=== PATIENT | female | born 1965 | race Caucasian/White ===

== ENCOUNTER 2019-08-12 12:38 | Outpatient (CLI) | payer OTHER, SELFPAY ==
--- NOTE | ~2019-08-12 | DEXA_ITS ---
BMD(1) Young-Adult(2) Age-Matched(3) Region (g/cm2) T-score Z-score WHO Classification L1 0.920 -1.8 -1.1 Osteopenia L2 1.029 -1.5 -0.8 Osteopenia L3 1.141 -0.6 0.1 Normal L4 1.031 -1.5 -0.8 Osteopenia L1-L4 1.033 -1.3 -0.6 Osteopenia Trend: L1-L4 Change vs Change vs Measured Age BMD(1) Baseline Previous Date (years) (g/cm2) (%) (%) 08/12/2019 54.3 1.033 baseline - 1 - Statistically 68% of repeat scans fall within 1SD (+- 0.010 g/cm2 for AP Spine L1-L4) 2 - [place] (Combined NHANES (ages 20-30) / Spotzot (ages 20-40)) AP Spine Reference Population (v112) 3 - Matched for Age, Weight (females 25-100 kg), Ethnic 11 - World Health Organization - Definition of Osteoporosis and Osteopenia for Women: Normal = T-score at or above -1.0 SD; Osteopenia = T-score between -1.0 and -2.5 SD; Osteoporosis = T-score at or below -2.5 SD; (WHO definitions only apply when a young healthy Women reference database is used to determine T-scores.) Printed: 08/12/2019 1:35:25 PM (13.60)76:3.00:50.00:12.0 0.00:10.44 0.60x1.05 23.8:%Fat=33.9% 0.00:0.00 0.00:0.00 Verify bone is centered and there is sufficient tissue next to bone. Filename: [id number] Scan Mode: Standard;Framehawkcan 37.0 Primordial [id number] BMD(1) Young-Adult(2,7) Age-Matched(3) Region (g/cm2) T-score Z-score WHO Classification Neck Left 0.719 -2.3 -1.3 Osteopenia Right 0.709 -2.4 -1.4 Osteopenia Mean 0.714 -2.3 -1.4 Osteopenia Difference 0.010 0.1 0.1 - Total Left 0.768 -1.9 -1.3 Osteopenia Right 0.828 -1.4 -0.8 Osteopenia Mean 0.798 -1.7 -1.0 Osteopenia Difference 0.060 0.5 0.5 - Hip Spruce Length Comparison (mm) (Right = 90.5 mm) (Mean = 99.8 mm) (Left = 93.0 mm) Trend: Total Mean Change vs Change vs Measured Age BMD(1) Baseline Previous Date (years) (g/cm2) (%) (%) 08/12/2019 54.3 0.798 baseline - 1 - Statistically 68% of repeat scans fall within 1SD (+- 0.010 g/cm2 for DualFemur Total) 2 - [place] (Combined NHANES (ages 20-30) / Spotzot (ages 20-40)) Femur Reference Population (v112) 3 - Matched for Age, Weight (females 25-100 kg), Ethnic 7 - DualFemur Total T-score difference is 0.5. Asymmetry is None. 11 - World Health Organization - Definition of Osteoporosis and Osteopenia for Women: Normal = T-score at or above -1.0 SD; Osteopenia = T-score between -1.0 and -2.5 SD; Osteoporosis = T-score at or below -2.5 SD; (WHO definitions only apply when a young healthy Women reference database is used to determine T-scores.) Printed: 08/12/2019 1:35:25 PM (13.60); Filename: [id number]; Right Femur; 19.4:%Fat=29.6%; Neck Angle (deg)= 67; Scan Mode: Standard 37.0 uGy; Left Femur; 19.1:%Fat=28.7%; Neck Angle (deg)= 71; Scan Mode: Standard 37.0 uGy [employer] [id number] Dear Preet Decker, Your patient Bouchra Gomez completed a BMD test on 08/12/2019 using the [employer] DXA System (analysis version: 13.60) manufactured by [employer]. The following summarizes the results of our evaluation. PATIENT BIOGRAPHICAL: Name: Bouchra Gomez Date: 1965 Height: 59.0 in. Gen
--- NOTE | ~2019-08-12 | MM_ITS ---
EXAMINATION: MM screening coy BI w sonam HISTORY: Screening mammogram TECHNIQUE: Craniocaudal and mediolateral oblique 3-D tomosynthesis images were obtained and synthetic 2-D images were generated. CAD analysis was submitted and interpreted. COMPARISON: Comparison to multiple prior studies sequentially, with oldest reviewed study dated 11/2014. BREAST PARENCHYMAL COMPOSITION: There are scattered areas of fibroglandular density. FINDINGS: There is no evidence of suspicious mass, calcification, or architectural distortion to sugg est malignancy in either breast. There has been no suspicious interval change. IMPRESSION: 1. No mammographic evidence of malignancy. 2. Recommend routine screening mammography in one year. BI-RADS Category 1: Negative Reviewed, dictated and finalized at location A. OR DIRECTOR FINANCE
== END 2019-08-12 12:39 | disposition home or self-care (01) ==
LOC: CHSIMG 12:40
PROVIDERS: PCP Internal Medicine; Visit Provider Internal Medicine
DX: Z12.31 Encounter for screening mammogram for malignant neoplasm of breast (principal); Z13.820 Encounter for screening for osteoporosis; Z78.0 Asymptomatic menopausal state
CPT/HCPCS: 77063; 77067; 77080

== ENCOUNTER 2019-08-19 13:14 | Outpatient (CLI) | payer OTHER, SELFPAY ==
--- NOTE | 2019-08-19 14:45 | ECHO_ITS ---
Patient Info Name: Bouchra Gomez Age: 54 years : 1965 Gender: Female Ht: 59 in Wt: 140 lbs BSA: 1.65 m2 HR: 60 bpm BP: 163 / 82 mmHg Technical Quality: Good Exam Date: 08/19/2019 1:58 PM Exam Location: [facility] Patient Status: Outpatient Admit Date: 08/19/2019 Staff Ordering Physician: Preet Decker MD Station Attendant: Oscar Cho RDCS, RT Attending Provider: Preet Decker MD Exam Type: CA echo dop color flow w con Study Info Indications I10 - Essential (primary) hypertension Complete two-dimensional, color flow and Doppler transthoracic echocardiogram is performed with contrast to opacify the left ventrical and to improve the deliniation of the left ventrical endocarial boarders. Summary 1. Left ventricular chamber dimension is mildly enlarged. 2. Left ventricular systolic function is mildly reduced, estimated at 45-50%. 3. There is mildly increased left ventricular wall thickness. 4. The left ventricular diastolic function is grade I diastolic dysfunction. 5. E/e' 13 is mildly elevated. 6. Global longitudinal strain is abnormal at -11.2%. 7. There is mild aortic valve regurgitation. 8. There is trace tricuspid valve regurgitation. 9. There is trace pulmonic regurgitation. Left Ventricle E/e' 13 is mildly elevated. Global longitudinal strain is abnormal at -11.2%. Left ventricular chamber dimension is mildly enlarged. Left ventricular systolic function is mildly reduced, estimated at 45-50%. There is mildly increased left ventricular wall thickness. The left ventricular diastolic function is grade I diastolic dysfunction. Right Ventricle Right ventricular chamber dimension is normal. Right ventricular systolic function is normal. Left Atria Left atrial chamber dimension is normal. Right Atria Right atrial chamber dimension is normal. Aortic Valve The aortic valve is trileaflet. There is no aortic valve stenosis. There is mild aortic valve regurgitation. Pulmonic Valve There is trace pulmonic regurgitation. Mitral Valve There is no mitral valve stenosis. There is no mitral valve regurgitation. Tricuspid Valve There is trace tricuspid valve regurgitation. RVSP is not calculated due to an inadequate TR jet. Pericardium/Pleural There is no pericardial effusion. Inferior Vena Cava Normal inferior vena cava with >50% collapse upon inspiration consistent with normal right atrial pressure, 5 mmHg. Aorta The aortic root size at the sinus of Valsalva is normal. Left Ventricular Outflow Tract Name Value Normal LVOT 2D LVOT Diameter 2.19 cm LVOT Doppler LVOT Peak Velocity 87.49 cm/s LVOT Peak Gradient 3 mmHg LVOT Mean Gradient 2 mmHg LVOT VTI 18.53 cm LVOT VTI/AV VTI Ratio 0.82 LVOT Stroke Volume 69.83 ml Pulmonic Valve Name Value Normal
== END 2019-08-19 13:15 | disposition home or self-care (01) ==
LOC: CHSIMG 13:16
PROVIDERS: PCP Internal Medicine; Visit Provider Internal Medicine
DX: I10 Essential (primary) hypertension (principal); Z00.00 Encounter for general adult medical examination without abnormal findings
CPT/HCPCS: C8929

== ENCOUNTER 2019-10-04 23:38 | Emergency (ER) | payer OTHER, SELFPAY ==
[2019-10-04 23:49] VITALS: BP 176/92; PULSE 89; RESP 18; TEMP 36.6; O2SAT 97
--- NOTE | 2019-10-04 23:51 | ED.DENTAL ---
HPI - Dental/Oral General Chief complaint: Dental/Oral Stated complaint: tooth pain right lower molar Time Seen by Provider: 10/04/19 23:51 Source: patient Mode of arrival: ambulatory Limitations: no limitations History of Present Illness HPI Narrative: 54-year-old woman comes in today complaining of right lower molar pain and swelling that started at 4:00 a.m.. Patient states that she has had no fever, vomiting, difficulty swallowing or difficulty breathing. She states the tooth broke some time back but she has not seen a dentist for yet. She has been taking ibuprofen for her discomfort. MD Complaint: tooth pain Teeth map: 1. Onset (ago): hour(s) (20) Duration: constant Severity: moderate Relieving factors: nothing Exacerbating factors: chewing and cold Associated symptoms: gum swelling and ear pain Treatment prior to arrival: oral analgesic Related Data Home Medications Medication Instructions Recorded Confirmed irbesartan 300 mg PO DAILY 10/04/19 10/04/19 montelukast 10 mg PO DAILY 10/04/19 10/04/19 omeprazole 40 mg PO DAILY 10/04/19 10/04/19 Allergies Allergy/AdvReac Type Severity Reaction Status Date / Time No Known Drug Allergies Allergy Unknown Verified 03/17/14 19:49 [email or web address] Allergy Severe hives Uncoded 03/17/14 19:44 Review of Systems Constitutional: Constitutional: Denies chills and Denies fever(s) Eyes: Eyes: Denies change in vision and Denies photophobia ENT: Denies dysphagia, Denies nasal congestion and Denies sore throat Cardiovascular: Cardiovascular: Denies chest pain and Denies radiating jaw, neck or arm pain Respiratory: Respiratory: Denies cough, Denies dyspnea and Denies wheezing Gastrointestinal: Gastrointestinal: Denies abdominal pain, Denies nausea and Denies vomiting Integumentary/Breasts: Skin/Breast: Denies pruritus, Denies erythema and Denies rash Neurologic: Denies vertigo, Denies dizziness and Denies syncope Hematologic/Lymphatic: Hematologic/Lymphatic: Denies easy bleeding and Denies easy bruising Allergic/Immunologic: Allergic/Immunologic: Denies lip swelling and Denies wheezing PMFSH Past Medical History Medical History COPD (chronic obstructive pulmonary disease) GERD (gastroesophageal reflux disease) Hypertensive cardiomyopathy Surgical History Surgical History H/O foot surgery H/O hernia repair H/O: hysterectomy Hx of cholecystectomy Hx of tonsillectomy Family History Family History (Updated 02/13/14 @ 07:13 by DOCTOR UNKNOWN) Sibling Hypertension Family history of chronic obstructive pulmonary disease Family history of emphysema Mother Family history of emphysema Other Depression Family history of alcoholism Family history of lung disease Social History Social History Smoking status: Current every day smoker Alcohol intake: current Exam Const: General: alert Nutritional Appearance: obese Orientation/consciousness: patient oriented x3 Other: [id number] acute distress. HENMT: Ears: external ears normal, TM's normal bilaterally and EAC's normal Mouth: Yes Normal oral and palatal mucosa present and Yes moist mucous membranes Throat: posterior oropharynx normal Other: Fracture of right lower 1st molar to the gumline. There is gingival this will aid without discharge. No submental swelling. Eyes: Conjunctivae: conjunctivae normal Pupils: Equal, round and reactive pupils present EOM: EOMs intact bilaterally Resp: Effort & Inspection: normal respiratory effort and not labored Auscultation: clear to auscultation bilaterally, no rales, no rhonchi and no wheezes Cardio: Rate: regular rate Rhythm: regular rhythm Heart sounds: no murmurs Skin: General skin exam: normal color, no jaundice and no pallor Rashes: no rashes Neuro: General: patient
[2019-10-05] MEDS: AMOXICILLIN/CLAVULANATE K 875-125 MG TAB 1 TABLET PO (00:14)
[2019-10-05 00:15] VITALS: BP 145/78; PULSE 85; RESP 20; O2SAT 99
== END 2019-10-05 00:16 | disposition home or self-care (01) ==
PROVIDERS: Emergency Provider Emergency Medicine; PCP Internal Medicine
DX: K08.89 Other specified disorders of teeth and supporting structures (principal)
CPT/HCPCS: 99283; A9270

== ENCOUNTER 2020-09-24 15:39 | Outpatient (CLI) | payer OTHER, SELFPAY ==
--- NOTE | ~2020-09-24 | XR_ITS ---
EXAMINATION: XR hand LT min 3V INDICATION: Left hand pain TECHNIQUE: Three views of the left hand are obtained. COMPARISON: None available FINDINGS: There is no fracture, dislocation, or subluxation. The bones, soft tissues, and joint space s are normal. IMPRESSION: 1. No acute osseous abnormality. Reviewed, dictated and finalized at location A.
--- NOTE | ~2020-09-24 | XR_ITS ---
EXAMINATION: XR hip RT min 2V DATE: 09/24/2020 16:17 INDICATION: Right hip pain TECHNIQUE: Two views of right hip were obtained. COMPARISON: None. FINDINGS: Bone alignment is normal. There is no fracture. The soft tissues are unremarkable. IMPRESSION: 1. No acute osseous abnormality. Reviewed, dictated and finalized at location A.
[2020-09-24 15:56] LABS: Basophils Absolute Auto 0.04 K/mm3 (0.00-0.10); Basophils Percent Auto 0.4 % (0.0-1.0); Eosinophils Absolute Auto 0.23 K/mm3 (0.02-0.50); Eosinophils Percent Auto 2.1 % (1.0-6.0); Hematocrit 39.6 % (35.0-49.0); Hemoglobin 12.8 g/dL (12.0-15.0); Immature Granulocyte Absolute 0.03 K/mm3 (0.00-0.00); Immature Granulocyte Percent A 0.3 % (0.0-0.0); Lymphocytes Absolute Auto 3.37 K/mm3 (1.10-4.50); Lymphocytes Percent Auto 31.3 % (18.0-42.0); Mean Corpuscular HGB Conc 32.3 g/dL (32.0-36.0); Mean Corpuscular Hemoglobin 29.9 pg (27.0-31.0); Mean Corpuscular Volume 92.5 fL (78.0-102.0); Mean Platelet Volume 9.4 fl (9.2-11.8); Monocytes Absolute Auto 0.72 K/mm3 (0.10-0.90); Monocytes Percent Auto 6.7 % (2.0-11.0); Neutrophils Absolute Auto 6.4 K/mm3 (1.7-7.2); Neutrophils Percent Auto 59.2 % (50.0-70.0); Platelet Count Result 314 K/mm3 (150-420); Red Blood Count 4.28 M/mm3 (4.20-5.40); Red Cell Distribution Width 13.8 % (11.6-14.4); White Blood Count 10.8 K/mm3 (4.8-10.8)
[2020-09-24 15:57] LABS: Add Urine Microscopic? NO; Appearance Urine Clear (Clear); Bilirubin Urine Negative (Negative); Blood Urine Negative (Negative); Color Urine Yellow (Yellow); Glucose Urine UA Negative (Negative); Ketones Urine Negative (Negative); Leukocyte Esterase Ur Negative (Negative); Nitrate Urine Negative (Negative); Protein Urine Negative (Negative); Specific Grav Ur >= 1.030 (1.010-1.020); Urobilinogen Urine 0.2 mg/dL (0.2-1.0); pH Urine 5.5 (5.0-8.0)
[2020-09-24 17:02] LABS: Alanine Aminotransferase 39 U/L (14-59); Alkaline Phosphatase 66 U/L (46-116); Anion Gap 7 mmol/L (8-16); Aspartate Amino Transferase 19 U/L (15-37); Bilirubin,Total 0.4 mg/dL (0.00-1.00); Blood Urea Nitrogen 15 mg/dL (7-18); CRP 0.9 mg/dL (0.0-0.9); Calcium 9.3 mg/dL (8.5-10.1); Carbon Dioxide 29 mmol/L (21-32); Chloride 103 mmol/L (98-108); Cholesterol 222 mg/dL (0-200); Estimated Glomerular Filt Rate > 60; Glucose 92 mg/dL (70-99); HDL Direct 49 mg/dL (40-60); LDL Cholesterol Calculated 159 mg/dL (<130); Osmolality Calculated 288 mOsm/kg (285-295); Sodium 139 mmol/L (136-145); Thyroid Stimulating Hormone 2.56 uIU/mL (0.36-3.74); Triglycerides 72 mg/dL (0-150)
== END 2020-09-24 15:40 | disposition home or self-care (01) ==
PROVIDERS: PCP Internal Medicine; Visit Provider Internal Medicine
DX: Z00.00 Encounter for general adult medical examination without abnormal findings (principal); M25.551 Pain in right hip; M25.542 Pain in joints of left hand
CPT/HCPCS: 36415; 73130; 73502; 80053; 80061; 81003; 84443; 85025; 86140

== ENCOUNTER 2020-10-24 04:43 | Emergency (ER) | payer OTHER, SELFPAY ==
[2020-10-24 04:47] VITALS: BP 147/77; PULSE 87; RESP 16; TEMP 37.1; O2SAT 95
--- NOTE | 2020-10-24 04:57 | ED.DENTAL ---
HPI - Dental/Oral General Chief complaint: Dental/Oral Stated complaint: tooth ache Time Seen by Provider: 10/24/20 04:57 Source: patient Mode of arrival: ambulatory Limitations: no limitations History of Present Illness HPI Narrative: Patient comes in and complains of dental pain moderately severe, sharp, in right lower jaw. She states this has been ongoing since last pm. She points to two teeth broken off at the gum line, the 6 and 12 year molars on the lower right. Nothing is known to precipitate this pain as these teeth have been broken off for some time. Pain has been ongoing since onset last pm. MD Complaint: tooth pain Onset (ago): hour(s) Duration: constant Severity: moderate Relieving factors: nothing Exacerbating factors: nothing Context: history of dental caries Treatment prior to arrival: none Related Data Home Medications Medication Instructions Recorded Confirmed irbesartan 300 mg PO DAILY 10/04/19 10/24/20 montelukast 10 mg PO DAILY 10/04/19 10/24/20 omeprazole 40 mg PO DAILY 10/04/19 10/24/20 amlodipine 5 mg tablet 5 mg PO DAILY 10/05/20 10/24/20 ipratropium 20 mcg-albuterol 100 1 puff INHALATION QID 10/05/20 10/24/20 mcg/actuation mist for inhalation Allergies Allergy/AdvReac Type Severity Reaction Status Date / Time duloxetine AdvReac Mild Unknown Verified 10/12/20 14:29 lorazepam [From Ativan] AdvReac Mild Unknown Verified 10/12/20 14:29 zucchini Allergy Severe hives Uncoded 10/12/20 14:29 Review of Systems Constitutional: Constitutional: Reports no additional constitutional complaints Eyes: Eyes: Reports no additional eye complaints ENT: Reports system reviewed and no additional complaints, except as documented Cardiovascular: Cardiovascular: Reports no additional cardiovascular complaints Respiratory: Respiratory: Reports no additional respiratory complaints Gastrointestinal: Gastrointestinal: Reports no additional gastrointestinal complaints Genitourinary: Genitourinary: Reports no additional female genitourinary complaints Musculoskeletal: Musculoskeletal: Reports no additional musculoskeletal complaints Integumentary/Breasts: Skin/Breast: Reports system reviewed and no additional complaints, except as docu Neurologic: Reports system reviewed and no additional complaints, except as documented Psychiatric: Psychiatric: Reports no additional psychiatric complaints Endocrine: Endocrine: Reports no additional endocrine complaints Hematologic/Lymphatic: Hematologic/Lymphatic: Reports no additional hematologic/lymphatic complaints Allergic/Immunologic: Allergic/Immunologic: Reports no additional allergic/immunologic complaints [facility] Past Medical History Medical History COPD (chronic obstructive pulmonary disease) GERD (gastroesophageal reflux disease) Hypertensive cardiomyopathy Surgical History Surgical History H/O foot surgery H/O hernia repair H/O: hysterectomy Hx of cholecystectomy Hx of tonsillectomy Family History Family History Sibling Hypertension Family history of chronic obstructive pulmonary disease Family history of emphysema Mother Family history of emphysema Other Depression Family history of alcoholism Family history of lung disease Social History Social History Smoking status: Current every day smoker Alcohol intake: current Exam Const: General: no acute distress Orientation/consciousness: patient oriented x3 HENMT: Head: normal to inspection Ears: external ears normal General nose exam: Normal external nose present Throat: posterior oropharynx normal Other: 6 year and 12 year molars are broken off at gum line lower right. both teeth appear to have an abscess associated with them Eyes: Conjunctivae: conjunctivae joe
[2020-10-24] MEDS: KETOROLAC (*BKC) 60 MG/2 ML VIAL IM (04:58)
[2020-10-24] MEDS: AMOXICILLIN 500 MG CAPSULE 1000 MG PO (04:58)
[2020-10-24 05:01] VITALS: BP 148/68; PULSE 88; RESP 18; TEMP 36.6
== END 2020-10-24 05:08 | disposition home or self-care (01) ==
PROVIDERS: Emergency Provider Emergency Medicine; PCP Internal Medicine
DX: K04.7 Periapical abscess without sinus (principal)
CPT/HCPCS: 96372; 99283; A9270; J1885

== ENCOUNTER 2020-11-04 07:29 | Outpatient (CLI) | payer OTHER, SELFPAY ==
--- NOTE | ~2020-11-04 | NM_ITS ---
EXAMINATION: NM debby stress w perfusion DATE: 11/04/2020 10:24 INDICATION: Chest pain. TECHNIQUE: Rest images were obtained following intravenous administration of 10.3 mCi Tc99m tetrofosm in (Myoview). The patient was infused intravenously with Lexiscan (regadenoson). Then, 32.5 mCi Tc99m tetrofosmin (Myoview) was administered intravenously, and stress images were obtained. Data was fco nstructed into short axis and horizontal and vertical long axis SPECT images. Gated SPECT images were also obtained. COMPARISON: Chest CT 05/24/2019 FINDINGS: There is no definite reversible or fixed perfusion abnormality to suggest ischemia or infar ction. There is no segmental wall motion abnormality. Left ventricular ejection fraction measures 6 4%. IMPRESSION: 1. No definite ischemia or infarct. 2. Normal left ventricular ejection fraction measuring 64%. Reviewed, dictated and finalized at location A.
--- NOTE | 2020-11-04 08:30 | EST_ITS ---
Patient Info Name: Bouchra Gomez Age: 55 years : 1965 Gender: Female Ht: 49 in Wt: 158 lbs BSA: 1.63 m2 HR: 65 bpm BP: 152 / 96 mmHg Exam Date: 11/04/2020 8:38 AM Exam Location: [facility] [place] [facility] Patient Status: Outpatient Admit Date: 11/04/2020 Staff Ordering Physician: Chriss Li DO Attending Provider: Chriss Li DO Exercise Technologist: Madalyn Alvarado CT Exercise Physician: Chriss Li DO Exam Type: CA stress debby w NM Study Info Indications R07.9 - Chest pain, unspecified A regadenoson stress test was performed. Summary 1. 1. Negative lexiscan stress test for ischemic ST changes by ECG criteria. 2. 2. Baseline hypertension. 3. 3. Nuclear scan to follow and will be reported separately. Please correlate with it. 4. 4. Patient informed of the above results. Protocol: Lexiscan Stress ECG Details Stage: REST Duration (min): 0 min : 53 sec HR (bpm): 65 SBP (mmHg): 152 DBP (mmHg): 96 Stage: REST Duration (min): 9 min : 27 sec HR (bpm): 75 SBP (mmHg): 152 DBP (mmHg): 96 Stage: STAGE 1 Duration (min): 0 min : 59 sec HR (bpm): 112 SBP (mmHg): 180 DBP (mmHg): 96 Stage: RECOVERY Duration (min): 1 min : 0 sec HR (bpm): 108 SBP (mmHg): 180 DBP (mmHg): 96 Stage: RECOVERY Duration (min): 2 min : 0 sec HR (bpm): 98 SBP (mmHg): 180 DBP (mmHg): 96 Stage: RECOVERY Duration (min): 2 min : 38 sec HR (bpm): 94 SBP (mmHg): 155 DBP (mmHg): 91 Rest HR: 75 bpm Peak HR: 114 bpm Rest Sys BP: 152 mmHg Peak Sys BP: 180 mmHg Max Pred HR: 166 bpm % Max Pred HR: 69 % Target HR: 141 bpm Max RPP: 20,520 bpm*mmHg Termination Reason: Completed protocol Cardiac Symptoms: Shortness of breath Total Time: 1 min : 0 sec Rest Sandoval BP: 96 mmHg Peak Sandoval BP: 96 mmHg Total Dose: 0.4 mg Resting ECG Sinus rhythm with borderline ST abnormality in diffuse leads. Stress ECG No ST changes. Arrhythmias None. Report Signatures
== END 2020-11-04 07:30 | disposition home or self-care (01) ==
LOC: ANHCARD 07:34
PROVIDERS: PCP Internal Medicine; Visit Provider Internal Medicine Cardiovascular Disease
DX: R07.9 Chest pain, unspecified (principal)
CPT/HCPCS: 78452; 93017; A9502; J2785

== ENCOUNTER 2021-05-06 11:54 | Outpatient (CLI) | payer OTHER, SELFPAY ==
[2021-05-06 13:08] LABS: SARS-CoV-2 RNA PCR Negative (Negative)
== END 2021-05-06 11:55 | disposition home or self-care (01) ==
LOC: CHSLAB 11:55
PROVIDERS: PCP Internal Medicine; Visit Provider Internal Medicine
DX: J06.9 Acute upper respiratory infection, unspecified (principal); Z20.822 Contact with and (suspected) exposure to COVID-19
CPT/HCPCS: C9803; U0003; U0005

== ENCOUNTER 2021-05-19 12:21 | Outpatient (CLI) | payer OTHER, SELFPAY ==
--- NOTE | ~2021-05-19 | CT_ITS ---
EXAMINATION: CT lung screening DATE: 05/19/2021 12:44 INDICATION: Personal history of nicotine dependence. TECHNIQUE: Computed tomography (CT) of the chest was performed without intravenous contrast. The dose -length product was 80.56 mGy-cm. Automated exposure control and iterative reconstruction technique w ere employed. COMPARISON: CT dated 05/24/2019 FINDINGS: Borderline heart size. No significant pleural or pericardial effusion. No thoracic lymphade nopathy. There is atherosclerosis. There are cholecystectomy clips. No endobronchial lesions. No pneu mothorax. No focal airspace consolidation. There are small reticulonodular densities in the left lowe r lobe, most likely benign postinfectious/inflammatory. All nodules measure 2 mm or less. No acute os seous abnormality. IMPRESSION: 1. Lung-RADS category 2: Benign appearance or behavior. Continue annual screening with noncontrast lo w-dose chest CT in 12 months. Reviewed, dictated and finalized at location B. BOILER IMPRESSION: 1. Lung-RADS category 2: Benign appearance or behavior. Continue annual screeni ng with noncontrast low-dose chest CT in 12 months.
== END 2021-05-19 12:22 | disposition home or self-care (01) ==
LOC: CHSIMG 12:22
PROVIDERS: PCP Internal Medicine; Visit Provider Internal Medicine
DX: Z87.891 Personal history of nicotine dependence (principal)
CPT/HCPCS: 71271

== ENCOUNTER 2021-12-08 08:48 | Outpatient (CLI) | payer OTHER, SELFPAY ==
--- NOTE | ~2021-12-08 | MM_ITS ---
EXAMINATION: MM screening coy BI w sonam HISTORY: Screening mammogram TECHNIQUE: Craniocaudal and mediolateral oblique 3-D tomosynthesis images were obtained and synthetic 2-D images were generated. CAD analysis was submitted and interpreted. COMPARISON: August 12, 2019, May 22, 2018 bilateral screening mammogram examinations BREAST PARENCHYMAL COMPOSITION: There are scattered areas of fibroglandular density. FINDINGS: There is no evidence of suspicious mass, calcification, or architectural distortion to sugg est malignancy in either breast. There has been no suspicious interval change. IMPRESSION: 1. No mammographic evidence of malignancy. 2. Recommend routine screening mammography in one year. BI-RADS Category 1: Negative Reviewed, dictated and finalized at location A.
--- NOTE | ~2021-12-08 | DEXA_ITS ---
Bone Density Report Name: LATONYA MENARD Age: 56 Sex: Female Ethnicity: White Date of : 1965 Indication: postmenopausal; screening for osteoporosis; asthma or emphysema; hysterectomy; Referring Provider: Preet Decker Study: Bone densitometry was performed. Exam Date: December 08, 2021 Accession number: [id number] Bone Density: Region BMD T-score Z-score Classification AP Spine(L1-L4) 0.865 -1.7 -0.5 Osteopenia Femoral Neck (Left) 0.618 -2.1 -1.0 Osteopenia Total Hip (Left) 0.699 -2.0 -1.3 Osteopenia Femoral Neck (Right) 0.549 -2.7 -1.6 Osteoporosis Total Hip (Right) 0.668 -2.2 -1.5 Osteopenia Femoral Neck Mean 0.583 -2.4 -1.3 Osteopenia Total Hip Mean 0.684 -2.1 -1.4 Osteopenia World Health Organization criteria for BMD impression classify patients as: Normal (T-score at or above -1.0), Osteopenia (T-score between -1.0 and -2.5), or Osteoporosis (T-score at or below -2.5). 10-year Fracture Risk: FRAX not reported because: Some T-score for Spine Total or Hip Total or Femoral Neck at or below -2.5 Clinical Information Provided by Patient: Smokes Has the following medical conditions: Asthma or Emphysema, Hysterectomy Patient maximum height was 59 Menopause Age: 34 No regular weight bearing exercise Does not regularly consume dairy products Drinks caffeinated beverages Onset of menses at age 12 Number of children 4 Impression: The patient has osteoporosis, based on the Right Femoral Neck T-score. The patient has risk factors, including: smoking. Discussion: INCREASED RISK OF FRACTURE. BONE DENSITY IS UNDESIRABLY LOW AT ONE OR MORE SKELETAL SITES, CONSISTENT WITH POSTMENOPAUSAL OSTEOPOROSIS. This patient's lowest T-score meets the World Health Organization's (WHO) criteria for osteoporosis at one or more sites (T-score -2.5 or below). In untreated patients, the risk of osteoporotic fracture increases approximately two-fold for each 1.0 SD decrease in T-score. Low bone density is not the only risk factor for fracture; also consider factors such as patient's age, frailty or poor health, risk of falling, risk of injury, previous osteoporotic fracture, family history of osteoporosis, cigarette smoking, low body weight, etc. Not everyone with low bone mineral density has osteoporosis; osteomalacia and other metabolic bone disorders should also be considered. Patients who have osteoporosis should be evaluated for specific diseases and conditions (secondary causes) that may cause or contribute to bone loss. The [place] [employer] Endocrinologists (AACE) and National Osteoporosis Foundation (NOF) recommend pharmacologic intervention for all postmenopausal women whose T-score is in this range. The patient should follow a healthful lifestyle (good nutrition with adequ
== END 2021-12-08 08:49 | disposition home or self-care (01) ==
LOC: CHSIMG 08:51
PROVIDERS: PCP Internal Medicine; Visit Provider Internal Medicine
DX: M81.0 Age-related osteoporosis without current pathological fracture (principal); Z12.31 Encounter for screening mammogram for malignant neoplasm of breast
CPT/HCPCS: 77063; 77067; 77080

== ENCOUNTER 2022-05-31 06:34 | Emergency (ER) | payer OTHER, SELFPAY ==
[2022-05-31] VITALS (19 sets, daily range): BP systolic 161–179; BP diastolic 64–75; PULSE 48–66; RESP 17–30; TEMP 36.3–36.7; O2SAT 93–99
--- NOTE | ~2022-05-31 | CT_ITS ---
EXAMINATION: CT chest high resolution wo nc DATE: 05/31/2022 09:25 INDICATION: Productive cough, left sided chest pain TECHNIQUE: Computed tomography (CT) of the chest was performed without intravenous contrast. The dose -length product (DLP) was 296.96 mGy-cm. Automated exposure control and iterative reconstruction tech [employer] were employed. COMPARISON: 05/19/2021 FINDINGS: There is mild emphysema. Scattered stable pulmonary nodules measure up to 2 mm. There is mi ld subsegmental atelectasis of the left lower lobe. There is a trace left pleural effusion. No pneumo thorax is identified. There is subsegmental atelectasis in the left lower lobe. There is a minimally displaced fracture at the posterolateral aspect of the left ninth rib. No pathologically enlarged tho racic lymph nodes are identified. The heart size is normal. The gallbladder is surgically absent. IMPRESSION: 1. Acute minimally displaced fracture at the posterolateral aspect of the left ninth rib. 2. Mild emphysema. Reviewed, dictated and finalized at location A. LER HAND
--- NOTE | ~2022-05-31 | XR_ITS ---
EXAMINATION: XR chest 2V DATE: 05/31/2022 07:44 INDICATION: Dyspnea. Left chest pain. TECHNIQUE: Frontal and lateral views of the chest were obtained. COMPARISON: Chest 2 views 05/09/2019 FINDINGS: There is mild atelectasis at left lung base. No pleural effusion or pneumothorax. The heart size is normal. Surgical clips in the right upper quadrant are likely from cholecystectomy. There ar e old healed left rib fractures. IMPRESSION: 1. Mild atelectasis at left lung base. Reviewed, dictated and finalized at location A. END SPINNING OPERATOR
--- NOTE | 2022-05-31 07:12 | PC.NURSE ---
Pt resting c call edmonds at side, Report to Alida RN
--- NOTE | 2022-05-31 07:29 | ED.SOB ---
HPI - SOB/Dyspnea General Chief Complaint: Upper Respiratory Infection Stated Complaint: Mid back pain/sick/cough Time Seen by Provider: 05/31/22 07:29 Source: patient and RN notes reviewed Mode of arrival: ambulatory Limitations: no limitations History of Present Illness HPI Narrative: Patient states that she has been having some left posterior chest wall pain for the last couple of days. She has had a cough and a history of COPD. She went to see her PCP who tested her for COVID in fluid that were both negative. She is currently taking cefdinir and just finished a 5 day course of prednisone. She denies any falls or trauma. MD elicited complaint: shortness of breath, cough and pain with inspiration Pertinent past history: COPD Onset (ago): day(s) (2) Context: recent illness Timing: constant Severity: moderate Exacerbating factors: lying flat and inspiration Relieving factors: nothing Known history of: COPD and congestive heart failure Associated symptoms: cough, wheezing and sputum production (green) Treatment prior to arrival: none Related Data Home oxygen amount: none Home Medications Medication Instructions Recorded Confirmed irbesartan 300 mg tablet 300 mg PO HS 10/04/19 05/31/22 montelukast 10 mg tablet 10 mg PO DAILY 10/04/19 05/31/22 omeprazole 40 mg capsule,delayed 40 mg PO DAILY 10/04/19 05/31/22 release amlodipine 5 mg tablet 10 mg PO HS 10/05/20 05/31/22 ipratropium 20 mcg-albuterol 100 1 puff inhalation QID 10/05/20 05/31/22 mcg/actuation mist for inhalation (Combivent Respimat) cefdinir 300 mg capsule 300 mg PO BID 05/31/22 05/31/22 Allergies Allergy/AdvReac Type Severity Reaction Status Date / Time prednisone Allergy Jittery Verified 05/31/22 06:55 duloxetine AdvReac Mild Unknown Verified 11/09/20 14:53 lorazepam [From Ativan] AdvReac Mild Unknown Verified 11/09/20 14:53 zucchini Allergy Severe hives Uncoded 11/09/20 14:53 Review of Systems Review of Systems: All systems reviewed & are unremarkable except as noted in HPI and below PMFSH Past Medical History Medical History (Updated 05/31/22 @ 10:34 by Donald Pugh MD) BMI 30.0-30.9,adult (05/01/18) CAD (coronary artery disease) COPD (chronic obstructive pulmonary disease) Dyslipidemia GERD (gastroesophageal reflux disease) Hypertensive cardiomyopathy Systolic dysfunction Surgical History Surgical History H/O foot surgery H/O hernia repair H/O: hysterectomy Hx of cholecystectomy Hx of tonsillectomy Family History Family History Sibling Hypertension Family history of chronic obstructive pulmonary disease Family history of emphysema Mother Family history of emphysema Other Depression Family history of alcoholism Family history of lung disease Social History Social History Smoking status: Current every day smoker Alcohol intake: current Exam Const: General: no acute distress, alert and ill appearing acutely Nutritional Appearance: well nourished Orientation/consciousness: patient oriented x3 Limitations: no limitations HENMT: Head: normal to inspection Ears: external ears normal Eyes: Conjunctivae: conjunctivae normal Pupils: Equal, round and reactive pupils present EOM: EOMs intact bilaterally Neck: Neck: normal visual inspection Chest: Chest palpation & inspection: tenderness rib left posterior-axillary line involving the 9th rib and involving the 10th rib Resp: Effort & Inspection: labored and tachypneic Auscultation: rales on the right at the base Cardio: Rate: bradycardic Rhythm: regular rhythm GI: GI Palp: Yes Soft to palpation and No Tenderness to palpation present (GI) Auscultation: normal bowel sounds Back/Spine/Pelvis: Cervical Spine: cervical ROM normal Thoracic/Lumbar Spine: thoraco-lumbar ROM normal Skin: Gener
[2022-05-31 07:58] LABS: Hematocrit 40.3 % (35.0-49.0); Mean Corpuscular HGB Conc 32.3 g/dL (32.0-36.0); Mean Corpuscular Hemoglobin 29.5 pg (27.0-31.0); Mean Corpuscular Volume 91.4 fL (78.0-102.0); Platelet Count Result 550 K/mm3 (150-420); Red Blood Count 4.41 M/mm3 (4.20-5.40); Red Cell Distribution Width 13.7 % (11.6-14.4)
[2022-05-31 08:02] LABS: White Blood Count 23.7 K/mm3 (4.8-10.8)
--- NOTE | 2022-05-31 08:08 | PC.NURSE ---
pt returns from radiology, lab work was obtained. lab reports wbc 23.7. erp is aware and medication to be administered as ordered. at bedside. pt denies any needs or complaints. will continue to monitor.
[2022-05-31 08:12] LABS: D Dimer 0.48 mg/L (0.19-0.50); Prothrombin Time 10.8 Seconds (9.50-12.10)
[2022-05-31 08:14] LABS: Alanine Aminotransferase 45 U/L (14-59); Albumin Level 3.8 g/dL (3.4-5.0); Alkaline Phosphatase 73 U/L (46-116); Anion Gap 8 mmol/L (8-16); Aspartate Amino Transferase 10 U/L (15-37); Bilirubin,Total 0.2 mg/dL (0.00-1.00); Blood Urea Nitrogen 22 mg/dL (7-18); Calcium 9.5 mg/dL (8.5-10.1); Carbon Dioxide 30 mmol/L (21-32); Chloride 102 mmol/L (98-108); Estimated Glomerular Filt Rate > 60; Glucose 101 mg/dL (70-99); Osmolality Calculated 293 mOsm/kg (285-295); Potassium 4.3 mmol/L (3.5-5.1); Sodium 140 mmol/L (136-145); Total Protein 7.4 g/dL (6.4-8.2)
[2022-05-31 08:15] LABS: Band Neutrophils Percent 0 % (0-6); Lymphocytes Absolute Manual 3.55 K/mm3 (1.1-4.5); Lymphocytes Percent Manual 15 % (18-44); Monocytes Absolute Manual 0.94 K/mm3 (0.1-0.90); Monocytes Percent Manual 4 % (3-9); Neutrophils Absolute Manual 19.19 K/mm3 (1.7-7.2); Neutrophils Percent Manual 81 % (46-73); Platelet Estimate Increased (Adequate); Schistocytes None Seen (NORMAL); Total Cells Counted 100
[2022-05-31] MEDS: LACTATED RINGERS 1,000 ML 999 ML IV CONT (08:15)
[2022-05-31 08:19] LABS: Lactic Acid Reflex 0.8 mmol/L (0.4-2.0)
--- NOTE | 2022-05-31 08:19 | PC.NURSE ---
pt has loose weak cough, she reports it hurts too bad to cough it up, i can get it up and out it just hurts.
[2022-05-31 08:22] LABS: Magnesium 2.4 mg/dL (1.8-2.4)
[2022-05-31 08:32] LABS: NT Pro B Type Natriuretic Pept 401 pg/mL (0-125)
[2022-05-31 08:33] LABS: Influenza A QL RT-PCR Negative (Negative); Influenza B QL RT-PCR Negative (Negative); SARS-CoV-2 RNA PCR Negative (Negative)
[2022-05-31] MEDS: KETOROLAC 15 MG/ML VIAL (*BKC) IV PUSH (08:48)
--- NOTE | 2022-05-31 09:28 | PC.NURSE ---
PT UP TO RR WITH ASSISTANCE, PT REPORTS MEDICATION DID HELP SOME. PT IS AWAITING CT RESULTS. WILL CONTINUE TO MONITOR.
== END 2022-05-31 10:40 | disposition home or self-care (01) ==
PROVIDERS: Emergency Provider Emergency Medicine; PCP Internal Medicine
DX: S22.32XA Fracture of one rib, left side, initial encounter for closed fracture (principal); Z20.822 Contact with and (suspected) exposure to COVID-19
CPT/HCPCS: 36415; 71046; 71250; 80053; 83605; 83735; 83880; 85025; 85380; 85610; 87040; 87502; 96361; 96365; 96375; 99284; J0696; J1885; J7120; U0003; U0005

== ENCOUNTER 2023-07-13 09:55 | Outpatient (CLI) | payer OTHER, SELFPAY ==
--- NOTE | ~2023-07-13 | CT_ITS ---
CT Scan of the Chest without Contrast: Clinical Indication: Pulmonary nodule Technique: Contiguous sections were acquired throughout the chest without intravenous contrast. Dose reduction technique was used on this scan by utilizing automated exposure control and iterative recon struction technique. The dose-length product (DLP) was 73.29 mGy-cm. COMPARISON: 05/31/2022 Findings: There is no evidence of any significant mediastinal, hilar or axillary lymphadenopathy. The mediastin al soft tissues appear normal. There is no evidence of pleural or pericardial effusion. The lungs are clear. No pulmonary nodules or infiltrates are noted. Images through the upper abdomen reveal cholecystectomy clips. Impression: No significant abnormalities seen. Reviewed, dictated and finalized at location . ROAD SUPERVISOR OF ENGINES Impression: No significant abnormalities seen.
== END 2023-07-13 09:56 | disposition home or self-care (01) ==
LOC: CHSIMG 09:56
PROVIDERS: PCP Internal Medicine; Visit Provider Internal Medicine
DX: R91.1 Solitary pulmonary nodule (principal)
CPT/HCPCS: 71250

== ENCOUNTER 2023-07-19 11:47 | Outpatient (CLI) | payer OTHER, SELFPAY ==
--- NOTE | ~2023-07-19 | MM_ITS ---
EXAMINATION: MM screening coy BI w sonam HISTORY: Screening TECHNIQUE: Craniocaudal and mediolateral oblique 3-D tomosynthesis images were obtained and synthetic 2-D images were generated. CAD analysis was submitted and interpreted. COMPARISON: 12/08/2021 BREAST PARENCHYMAL COMPOSITION: There are scattered areas of fibroglandular density. FINDINGS: There is no evidence of suspicious mass, calcification, or architectural distortion to sugg est malignancy in either breast. There has been no suspicious interval change. IMPRESSION: 1. No mammographic evidence of malignancy. 2. Recommend routine screening mammography in one year. BI-RADS Category 1: Negative Reviewed, dictated and finalized at location A. STYLE DIRECTOR
== END 2023-07-19 11:48 | disposition home or self-care (01) ==
LOC: CHSIMG 11:49
PROVIDERS: PCP Internal Medicine; Visit Provider Internal Medicine
DX: Z12.31 Encounter for screening mammogram for malignant neoplasm of breast (principal)
CPT/HCPCS: 77063; 77067

== ENCOUNTER 2023-11-24 12:12 | Outpatient (CLI) | payer OTHER, SELFPAY | END 2023-11-24 12:13 | disposition home or self-care (01) | LOC: CHSIMG 12:19 | PROVIDERS: PCP Internal Medicine; Visit Provider Internal Medicine | DX: M79.672 Pain in left foot (principal) | CPT/HCPCS: 73630 ==

== ENCOUNTER 2025-01-31 09:44 | Outpatient (CLI) | payer OTHER, SELFPAY ==
--- NOTE | ~2025-01-31 | US_ITS ---
EXAMINATION:US venous doppler LE RT INDICATION:Bruising around right knee TECHNIQUE: Multiple grayscale, color flow and Doppler images of the right lower extremity deep venous systems were obtained and reviewed. COMPARISON:No prior studies for comparison. FINDINGS: The common femoral, superficial femoral and popliteal veins demonstrate normal respiratory variation, augmentation and compressibility. Color flow is also seen within the posterior tibial, pe roneal, greater saphenous and profunda veins. IMPRESSION: 1: No lower extremity deep venous thrombosis. Reviewed, dictated and finalized at location A.
--- OUTSIDE RECORDS SUMMARY | 2025-01-31 09:51 | XMS_ITS | Patient Health Record ---
Author Organization [facility] Address [address] [place], [place] [id number] Support Name Relationship Address Phone LATONYA MENARD Guarantor Unknown [phone] Reason For Referral No Information Medications Medication SIG (Take, Route, Frequency, Duration) Notes Start Date End Date Status levofloxacin 500 MG Oral Tablet [Levaquin] ORAL levofloxacin 500 MG Oral Tablet [Levaquin]Original Medicationlevofloxacin 500 MG Oral Tablet [Levaquin] *Reorder from [employer] for eRx and Interaction Alerts* 11/16/2012 Active Plan Of Treatment No Information
== END 2025-01-31 09:45 | disposition home or self-care (01) ==
LOC: CHSIMG 09:47
PROVIDERS: PCP Internal Medicine; Visit Provider Internal Medicine
DX: M79.661 Pain in right lower leg (principal)
CPT/HCPCS: 93971

== ENCOUNTER 2025-02-25 09:56 | Emergency (ER) | payer OTHER, SELFPAY ==
[2025-02-25] VITALS (11 sets, daily range): BP systolic 120–137; BP diastolic 64–70; PULSE 64–72; RESP 14–21; TEMP 36.2; O2SAT 95–99
--- NOTE | ~2025-02-25 | XR_ITS ---
EXAMINATION: XR chest 2V DATE: 02/25/2025 10:20 INDICATION: Shortness of breath TECHNIQUE: Frontal and lateral images of the chest were obtained. COMPARISON: Chest radiograph dated 05/31/2022 FINDINGS: Heart is mildly enlarged. No pneumothorax. No pleural effusion. No free air the diaphragm. No focal pulmonary consolidation. IMPRESSION: 1. No acute pulmonary process identified. Reviewed, dictated and finalized at location Q.
--- NOTE | 2025-02-25 10:00 | ECG_ITS ---
Test Date: 2025-02-25 10:07:58 Measurements Intervals Boyce Rate: 56 P: 45 AK: 164 QRS: 51 QRSD: 84 T: 71 QT: 393 QTc: 382 Interpretive Statements SINUS BRADYCARDIA OTHERWISE NORMAL ECG No previous ECG available for comparison Electronically Signed On 02-26-2025 16:34:32 CDT by Kiran Bueno M.D.
--- NOTE | 2025-02-25 10:11 | PC.NURSE ---
Pt to radiology with civil drafting technician.
--- NOTE | 2025-02-25 10:21 | PC.NURSE ---
Pt back in room from radiology.
[2025-02-25] MEDS: HYDROcodone/acetaminophen (*CRX) 5-325 MG TABLET 1 TAB PO (10:46)
--- NOTE | 2025-02-25 10:53 | ED.CHESTPAIN ---
HPI - Chest Pain General Chief Complaint: Chest Pain Stated Complaint: chest pain Time Seen by Provider: 02/25/25 09:57 Source: patient Mode of arrival: EMS Limitations: no limitations History of Present Illness HPI narrative: 59-year-old with a history of hypertension, COPD, hyperlipidemia was brought in from home by EMS with a complains of sudden onset of midsternal chest pain. Patient states that she was at the kitchen trying to make laminated felt a sudden pop in mid chest area. Denies any shortness of breath however she states that it is painful to take a deep breath. MD complaint: chest pain Pertinent past history: other ( COPD) Onset (ago): hour(s) (1) Timing of current episode: constant Onset: during rest Pain location: parasternal Pain radiation: none Severity: moderate Quality: aching Relieving factors: nothing Exacerbating factors: inspiration Risk Factors Coronary artery disease risk factors: none Related Data Home Medications ?Medication ?Instructions ?Recorded ?Confirmed ?Last Taken ?Type irbesartan 300 mg tablet 300 mg PO HS 10/04/19 02/25/25 Unknown History montelukast 10 mg tablet 10 mg PO DAILY 10/04/19 02/25/25 Unknown History omeprazole 40 mg capsule,delayed 40 mg PO DAILY 10/04/19 02/25/25 Unknown History release ipratropium 20 mcg-albuterol 100 1 puff inhalation QID 10/05/20 02/25/25 Unknown History mcg/actuation mist for inhalation (Combivent Respimat) amlodipine 10 mg tablet 10 mg PO DAILY 02/25/25 02/25/25 Unknown History famotidine 40 mg tablet 40 mg PO Q12H 02/25/25 02/25/25 Unknown History fluticasone fur. 200 mcg-umeclid 1 inh inhalation Q24H 02/25/25 02/25/25 Unknown History 62.5 mcg-vilant 25 mcg inhalat.powder (Trelegy Ellipta) rosuvastatin 5 mg tablet 5 mg PO DAILY 02/25/25 02/25/25 Unknown History Allergies Allergy/AdvReac Type Severity Reaction Status Date / Time sashaucchini (for use with DAM Allergy Severe Anaphylaxis Verified 02/25/25 10:02 only) prednisone Allergy Jittery Verified 02/25/25 10:02 duloxetine AdvReac Mild Unknown Verified 02/25/25 10:02 lorazepam (From Ativan) AdvReac Mild Unknown Verified 02/25/25 10:02 Review of Systems Review of Systems: All systems reviewed & are unremarkable except as noted in HPI and below Constitutional: Constitutional: Reports no additional constitutional complaints Eyes: Eyes: Reports no additional eye complaints ENT: Reports system reviewed and no additional complaints, except as documented Cardiovascular: Cardiovascular: Reports as per HPI Respiratory: Respiratory: Reports no additional respiratory complaints Musculoskeletal: Musculoskeletal: Reports as per HPI Psychiatric: Psychiatric: Reports no additional psychiatric complaints Endocrine: Endocrine: Reports no additional endocrine complaints [facility] Past Medical History Medical History BMI 30.0-30.9,adult (05/01/18) CAD (coronary artery disease) Systolic dysfunction Dyslipidemia COPD (chronic obstructive pulmonary disease) GERD (gastroesophageal reflux disease) Hypertensive cardiomyopathy Surgical History Surgical History H/O foot surgery H/O hernia repair Hx of cholecystectomy H/O: hysterectomy Hx of tonsillectomy Family History Family History Sibling Hypertension Family history of chronic obstructive pulmonary disease Family history of emphysema Mother Family history of emphysema Other Depression Family history of alcoholism Family history of lung disease Social History Social History Smoking status: Current every day smoker Alcohol intake: current Exam Narrative: GENERAL: Well-appearing, well-nourished, and in no acute distress. HEAD: Normocephalic, atraumatic. EYES: PERRLA and EOMI. ENT: Nares clear, no rhinorrhea or epistaxis. Mucous membranes moist. NECK: Supple. CHEST: Clear to auscultation. No respiratory distress. mild tenderness on palpation in the mid chest area. HEART: Regular rate and rhythm. No murmur heard. Normal peripheral pulses. ABDOMEN: Soft, nontender, nondistended, normal active bowel sounds. EXTREMITIES: Normal range of motion. No edema. SKIN: Warm, dry, no rash. NEURO: No focal deficits. Alert and oriented x3. PSYCH: Normal mood and affect. Course Course Emergency Course: Patient comfortably sitting in the bed in no discomfort SpO2 was 94% on room air. Did inform her about her EKG and chest x-ray findings. Vital Signs Vital signs: Vital Signs Temperature 36.2 C L 02/25/25 09:56 Pulse Rate 64 02/25/25 09:56 Respiratory Rate 14 02/25/25 09:56 Blood Pressure 137/64 02/25/25 09:56 Pulse Oximetry 96 02/25/25 09:56 Oxygen Delivery Room Air 02/25/25 09:56 Temperature 36.2 C L 02/25/25 09:56 Pulse Rate 66 02/25/25 10:05 Respiratory Rate 14 02/25/25 09:56 Blood Pressure 137/64 02/25/25 09:56 Pulse Oximetry 99 02/25/25 10:05 Oxygen Delivery Room Air 02/25/25 10:05 MDM - Chest Pain Differential Diagnosis Differential diagnosis: Likely fracture of rib, pneumothorax and atypical chest pain Medical Records Data Attestation: I reviewed the patient's medical records. Imaging Data Radiologist's impression: ITS Impressions Chest X-Ray 02/25/25 10:37 IMPRESSION: 1. No acute pulmonary process identified. ECG Data EKG #1: ECG completion date: 02/25/25 ECG completion time: 10:07 EKG Interpretation: bradycardia (56), no ectopy, no ST changes, normal QRS and normal QT Discharge Plan Discharge Clinical Impression: Costalchondritis Chest pain Qualifiers: Chest pain type: intercostal pain Qualified Code(s): R07.82 - Intercostal pain Patient Disposition: Home Condition: Stable Instructions: Chest Wall Pain (ED), Costochondritis (ED) Patient Language: Uzbek Prescriptions: New hydrocodone-acetaminophen 5-325 mg tablet 1 tablet PO Q6H PRN (Reason: pain) Qty: 10 0RF No Action famotidine 40 mg tablet 40 mg PO Q12H amlodipine 10 mg tablet 10 mg PO DAILY rosuvastatin 5 mg tablet 5 mg PO DAILY Trelegy Ellipta 200-62.5-25 mcg blister with device 1 inh INHALATION Q24H omeprazole 40 mg capsule,delayed release(DR/EC) 40 mg PO DAILY montelukast 10 mg tablet 10 mg PO DAILY irbesartan 300 mg tablet 300 mg PO HS hydrocodone-acetaminophen 5-325 mg tablet 1 tablet PO Q6H PRN (Reason: pain) Qty: 14 0RF Combivent Respimat 20-100 mcg/actuation mist 1 puff inhalation QID Rx Instructions: space evenly during waking hours Follow-up/Referrals: Preet Decker MD [Primary Care Provider, Internal Medicine] Time of Disposition: 11:09
--- OUTSIDE RECORDS SUMMARY | 2025-02-25 11:17 | XMS_ITS | Patient Health Record ---
Author Organization [facility] Address [address] [place], [place] [id number] Support Name Relationship Address Phone LATONYA MENARD Guarantor Unknown [phone] Reason For Referral No Information Medications Medication SIG (Take, Route, Frequency, Duration) Notes Start Date End Date Status levofloxacin 500 MG Oral Tablet [Levaquin] ORAL levofloxacin 500 MG Oral Tablet [Levaquin]Original Medicationlevofloxacin 500 MG Oral Tablet [Levaquin] *Reorder from [employer] for eRx and Interaction Alerts* 11/16/2012 Active Plan Of Treatment No Information
== END 2025-02-25 11:32 | disposition home or self-care (01) ==
PROVIDERS: Emergency Provider Family Medicine; PCP Internal Medicine
DX: M94.0 Chondrocostal junction syndrome [Tietze] (principal); R07.82 Intercostal pain; J44.9 Chronic obstructive pulmonary disease, unspecified; E78.5 Hyperlipidemia, unspecified; I25.10 Atherosclerotic heart disease of native coronary artery without angina pectoris; I10 Essential (primary) hypertension; F17.200 Nicotine dependence, unspecified, uncomplicated; Z79.899 Other long term (current) drug therapy
CPT/HCPCS: 71046; 93005; 99283; A9270

== ENCOUNTER 2025-02-28 12:27 | Outpatient (CLI) | payer OTHER, SELFPAY ==
[2025-02-28 12:37] LABS: Hematocrit 39.4 % (35.0-49.0); Hemoglobin 12.6 g/dL (12.0-15.0); Mean Corpuscular HGB Conc 32.0 g/dL (32-36); Mean Corpuscular Hemoglobin 29.6 pg (27.0-31.0); Mean Corpuscular Volume 92.7 fL (78.0-102.0); Platelet Count Result 390 K/mm3 (150-420); Red Blood Count 4.25 M/mm3 (4.20-5.40); White Blood Count 13.8 K/mm3 (4.8-10.8)
[2025-02-28 12:55] LABS: Alanine Aminotransferase 27 U/L (6-35); Albumin Level 4.7 g/dL (3.5-5.1); Alkaline Phosphatase 63 U/L (38-126); Anion Gap 8 mmol/L (4-12); Aspartate Amino Transferase 28 U/L (14-36); Bilirubin,Total 0.4 mg/dL (0.2-1.3); Blood Urea Nitrogen 17 mg/dL (7-17); CRP < 0.5 mg/dL (<1.0); Calcium 9.9 mg/dL (8.4-10.2); Carbon Dioxide 30 mmol/L (22-30); Chloride 105 mmol/L (98-107); Creatine Kinase 63 U/L (30-135); Estimated Glomerular Filt Rate > 60; Glucose 113 mg/dL (65-110); Osmolality Calculated 298 mOsm/kg (285-295); Potassium 4.5 mmol/L (3.4-5.0); Sodium 143 mmol/L (137-145); Total Protein 7.2 g/dL (6.3-8.2)
[2025-02-28 13:04] LABS: Troponin I < 0.012 ng/mL (0.000-0.034)
--- OUTSIDE RECORDS SUMMARY | 2025-02-28 13:15 | XMS_ITS | Patient Health Record ---
Author Organization [facility] Address [address] [place], [place] [id number] Support Name Relationship Address Phone LATONYA MENARD Guarantor Unknown [phone] Reason For Referral No Information Medications Medication SIG (Take, Route, Frequency, Duration) Notes Start Date End Date Status levofloxacin 500 MG Oral Tablet [Levaquin] ORAL levofloxacin 500 MG Oral Tablet [Levaquin]Original Medicationlevofloxacin 500 MG Oral Tablet [Levaquin] *Reorder from [employer] for eRx and Interaction Alerts* 11/16/2012 Active Plan Of Treatment No Information
== END 2025-02-28 12:28 | disposition home or self-care (01) ==
PROVIDERS: PCP Internal Medicine; Visit Provider Internal Medicine
DX: R07.9 Chest pain, unspecified (principal)
CPT/HCPCS: 36415; 80053; 82550; 82553; 84484; 85027; 85380; 86140

== ENCOUNTER 2025-05-09 14:49 | Outpatient (CLI) | payer OTHER, SELFPAY ==
--- NOTE | ~2025-05-09 | XR_ITS ---
EXAMINATION: XR shoulder RT min 2V DATE: 05/09/2025 15:05 INDICATION: Worsening pain. TECHNIQUE: 4 views of the right shoulder were obtained. COMPARISON: None. FINDINGS: No acute bony lesions. Osteoarthritis of the AC joint is mildly impinging on the subacromion space. Soft tissues are unremarkable. IMPRESSION: 1. Degenerative changes of AC joint mildly impinging on the subacromion space. Reviewed, dictated and finalized at location T. NDERING SUPERVISOR
--- OUTSIDE RECORDS SUMMARY | 2025-05-09 14:51 | XMS_ITS | Patient Health Record ---
Author Organization [facility] Address [address] [place], [place] [id number] Support Name Relationship Address Phone LATONYA MENARD Guarantor Unknown [phone] Reason For Referral No Information Medications Medication SIG (Take, Route, Frequency, Duration) Notes Start Date End Date Status levofloxacin 500 MG Oral Tablet [Levaquin] ORAL levofloxacin 500 MG Oral Tablet [Levaquin]Original Medicationlevofloxacin 500 MG Oral Tablet [Levaquin] *Reorder from Head Held High for eRx and Interaction Alerts* 11/16/2012 Active Social History Social History Additional Details Category Social Info Options Details Migrated Social History Migrated Social History History of tobacco use : Current every day smoker , Smoking Status : Current every day smoker Plan Of Treatment No Information
== END 2025-05-09 14:50 | disposition home or self-care (01) ==
LOC: CHSIMG 14:50
PROVIDERS: PCP Internal Medicine; Visit Provider Internal Medicine
DX: M25.511 Pain in right shoulder (principal)
CPT/HCPCS: 73030